=== PATIENT | male | born 1985 | race Two or more races ===

== ENCOUNTER 2018-12-13 10:58 | Emergency (ER) | payer OTHER ==
[~2018-12-13] VITALS: Ht 182.9 cm; Wt 81.6 kg
[2018-12-13 10:58] VITALS: BP 130/75
--- NOTE | 2018-12-13 11:04 | NUR ---
ED Nurse Note: Pt came in for medical clearance under police sutody. C/O bilateral wrist pain d/t hand cuffs. VSS.
[2018-12-13] MEDS ORDERED: IBUPROFEN600 MG ORAL (12:00)
[2018-12-13 12:04] VITALS: BP 127/84
--- NOTE | 2018-12-13 12:04 | NUR ---
ED Nurse Note: Pt cleared by Health Care Provider for discharge. DC instructions/prescriptions given and explained to pt and verbalized understanding of teachings. All medical devices such as ID band removed. Pt AAO x4, ambulatory and left with all personal belongings. Pt left with [employer].
--- NOTE | 2018-12-13 13:10 | Emergency Room Report ---
History of Present Illness General Chief Complaint: Medical Clearance Source: Patient Present Illness HPI Patient is a 33-year-old male presented for medical clearance for correction. Patient was brought in by [employer]. Patient was noted to have pain to both wrists. Patient states he had been handcuffed and was noted to have pain from area where handcuffs were. He denies other trauma. Patient states that he had been arrested last night and placed in a holding cell. He reports being able to move his hands normally. He denies any numbness or tingling. Allergies: Coded Allergies: No Known Allergies (Unverified , 12/13/18) Patient History Reviewed Nursing Documentation: PMH: Agreed; PSxH: Agreed Nursing Documentation-PMH Past Medical History: No Stated History Review of Systems All Other Systems: negative except mentioned in HPI Physical Exam Vital Signs Date Time Temp Pulse Resp B/P (MAP) Pulse Ox O2 Delivery O2 Flow Rate FiO2 12/13/18 10:54 98.4 80 18 136/80 98 Room Air General Appearance: well appearing, no apparent distress, alert, GCS 15, non- toxic Head: normocephalic, atraumatic ENT: hearing grossly normal, normal voice Neck: full range of motion, supple Respiratory: no respiratory distress, speaking full sentences Musculoskeletal: normal inspection, no calf tenderness Neurologic: normal inspection, alert, oriented x3, responsive, normal gait Psychiatric: mood/affect normal Skin: normal inspection, normal color, no rash, other - no laceration or abrasion Medical Decision Making Diagnostic Impression: Primary Impression: Bilateral wrist pain ER Course Patient presented for bilateral wrist pain. Differential diagnosis include was not limited to arthritis, skin abrasion, fracture among others. Patient has a benign exam and does not appear to require any further imaging or laboratory testing at this time. Does not show any evidence of acute injury at this time. Patient does not appear to require x-ray imaging. Patient declined oral medications for pain. Patient is medically cleared for booking. Last Vital Signs Date Time Temp Pulse Resp B/P (MAP) Pulse Ox O2 Delivery O2 Flow Rate FiO2 12/13/18 12:04 97.5 81 16 127/84 100 Room Air Status: improved Disposition: D/C TO LAW ENFORCEMENT IN [facility] Condition: Stable Scripts Ibuprofen* (MOTRIN*) 600 Mg Tablet 600 MG ORAL Q8H PRN for For Pain, #30 TAB 0 Refills Prov: Thang Cosme MD 12/13/18 Departure Forms: [facility] Clearance Patient Instructions: Wrist Pain Thang Cosme MD Dec 13, 2018 13:10
== END 2018-12-13 12:04 ==
LOC: EDBD 10:58 → EMR 11:20
DX: M25.532 Pain in left wrist (principal); M25.531 Pain in right wrist
CPT/HCPCS: 99283